=== PATIENT | female | born 1945 | race Two or more races ===

== ENCOUNTER 2022-07-19 12:57 | Emergency (ER) | payer MEDICARE ==
[~2022-07-19] VITALS: Ht 160 cm; Wt 56.8 kg
[2022-07-19] MEDS ORDERED: IBUPROFEN 200 MG TABLET PO ONE (14:00)
[2022-07-19] MEDS ORDERED: ACETAMINOPHEN/CODEINE 300-30 MG TABLET PO ONE (14:00)
[2022-07-19] MEDS ORDERED: ACET-2080 PO (14:33)
[2022-07-19] MEDS ORDERED: IBUP-45 PO (14:33)
[2022-07-19 14:49] VITALS: BP 112/83
== END 2022-07-19 14:50 | disposition home or self-care (01) ==
LOC: EMS 12:59
DX: S46.912A Strain of unspecified muscle, fascia and tendon at shoulder and upper arm level, left arm, initial encounter (principal); M75.32 Calcific tendinitis of left shoulder; X58.XXXA Exposure to other specified factors, initial encounter; Y93.89 Activity, other specified; Y92.89 Other specified places as the place of occurrence of the external cause; Y99.8 Other external cause status
CPT/HCPCS: 29240; 99283